=== PATIENT | female | born 2000 | race Caucasian/White ===

== ENCOUNTER 2018-09-18 23:07 | Emergency (ER) | payer SELFPAY ==
[~2018-09-18] VITALS: Ht 167.6 cm; Wt 109.2 kg
[2018-09-18 23:21] VITALS: Ht 167.6 cm; Wt 109.2 kg
[2018-09-19] MEDS ORDERED: SOD CHLORIDE 0.9% 1,000 ML IV STA (02:38)
[2018-09-19] MEDS ORDERED: ONDANSETRON 4 MG INJ IV STA (02:48)
[2018-09-19] MEDS ORDERED: HYDROmorphONE 1 MG/ML SYG IV STA (02:48)
--- NOTE | 2018-09-19 04:07 | ERD ---
ER Documentation Chief Complaint Chief Complaint C/O NAUSEA AND VOMITING X1 DAY, DIARRHEA AND AP X4 DAYS HPI This is a 18-year-old female who is had vomiting x1 today that was nonbilious and nonbloody, she is had 3 days of diarrhea having about 8-10 watery stools a day. She has no abdominal pain. No fever. Does not know if has had food borne illness. No others at home with the same symptoms. She also complains of a dull headache but no fever photophobia or stiff neck ROS All systems reviewed and are negative except as per history of present illness. Medications Home Meds No Active Prescriptions or Reported Meds Allergies Allergies: Coded Allergies: No Known Allergy (Unverified , 09/19/18) FmHx Family History: No coronary disease Physical Exam Vitals Vital Signs Date Temp Pulse Resp B/P (MAP) Pulse Ox O2 O2 Flow FiO2 Time Delivery Rate 09/18/18 98.5 85 19 133/78 97 23:21 (96) Physical Exam Const: Well-developed, well-nourished Head: Atraumatic, normocephalic Eyes: Normal Conjunctiva, PERRLA, EOMI, normal sclera, no nystagmus ENT: Normal External Ears, Nose and Mouth, moist mucus membranes. Neck: Full range of motion. No meningismus, no lymphadenopathy. Resp: Clear to auscultation bilaterally, no wheezing, rhonchi, rales Cardio: Regular rate and rhythm, no murmurs, S1 S2 present Abd: Soft, non tender x 4, non distended. Normal bowel sounds, no guarding or rebound, no pulsitile abdominal masses or bruits Skin: No petechiae or rashes, no ecchymosis , no maculopapular rash Back: No midline or flank tenderness Ext: No cyanosis, or edema, FROM x 4, normal inspection, neurovascularly intact x 4 Neur: Awake and alert, STR 5/5 x 4, sensation intact x 4, no focal findings, cerebellum intact Psych: Normal Mood and Affect Result Diagram: 09/19/18 0309 09/19/18 0309 Results 24 hrs Laboratory Tests Test 09/19/18 02:26 09/19/18 03:09 09/19/18 03:18 POC Beta HCG, Qualitative NEGATIVE White Blood Count 7.4 10^3/ul Red Blood Count 4.86 10^6/ul Hemoglobin 11.9 g/dl Hematocrit 37.8 % Mean Corpuscular Volume 77.8 fl Mean Corpuscular Hemoglobin 24.5 pg Mean Corpuscular 31.5 g/dl Hemoglobin Concent Red Cell Distribution Width 14.6 % Platelet Count 425 10^3/UL Mean Platelet Volume 10.6 fl Immature Granulocytes % 0.300 % Neutrophils % 59.3 % Lymphocytes % 31.7 % Monocytes % 7.7 % Eosinophils % 0.7 % Basophils % 0.3 % Nucleated Red Blood Cells % 0.0 /100WBC Immature Granulocytes # 0.020 10^3/ul Neutrophils # 4.4 10^3/ul Lymphocytes # 2.3 10^3/ul Monocytes # 0.6 10^3/ul Eosinophils # 0.1 10^3/ul Basophils # 0.0 10^3/ul Nucleated Red Blood Cells # 0.0 10^3/ul Sodium Level 142 mmol/L Potassium Level 3.9 mmol/L Chloride Level 104 mmol/L Carbon Dioxide Level 28 mmol/L Anion Gap 10 Blood Urea Nitrogen 19 mg/dl Creatinine 0.59 mg/dl Est Glomerular Filtrat Rate mL/min > 60 mL/min Glucose Level 95 mg/dl Calcium Level 9.4 mg/dl Bedside Urine pH (LAB) 6.0 Bedside Urine Protein (LAB) Negative Bedside Urine Glucose (UA) Negative Bedside Urine Ketones (LAB) Negative Bedside Urine Blood Negative Bedside Urine Nitrite (LAB) Negative Bedside Urine Leukocyte Esterase Negative (L Current Medications Medications Dose Sig/Elise Start Time Status Last (Trade) Ordered Route PRN Stop Time Admin Dose Reason Admin Sodium 1,000 ml @ Q1H STAT 09/19/18 DC 09/19/18 Chloride 1,000 mls/hr IV 02:38 02:57 09/19/18 03:37 1 mg ONCE STAT 09/19/18 DC 09/19/18 Hydromorphone IV 02:48 02:57 HCl 09/19/18 02:49 (Dilaudid) Ondansetron 4 mg ONCE STAT 09/19/18 DC 09/19/18 HCl (Zofran IV 02:48 02:56 Inj) 09/19/18 02:49 Procedures/MDM Labs are unremarkable and show no signs of gross infection, electrolytes are not abnormal. Patient received IV fluids and pain medication and nausea medication. The patient may have a virus or food borne illness. We will treat with symptomatic control and Cipro Departure Diagnosis: Primary Impression: Gastroenteritis Condition: Stable LU NORTON DO September 19, 2018 04:07
[2018-09-19] MEDS ORDERED: DIPH1TAB PO (04:09)
[2018-09-19] MEDS ORDERED: ONDA4TAB14 PO (04:09)
[2018-09-19] MEDS ORDERED: CIPR500T4 PO (04:09)
[2018-09-19 04:48] VITALS: BP 130/79; PULSE 72; RESP 19
== END 2018-09-19 05:27 | disposition home or self-care (01) ==
LOC: E/R 23:07
DX: K52.9 Noninfective gastroenteritis and colitis, unspecified (principal)
CPT/HCPCS: 36415; 80048; 81003; 81025; 85025; 96374; 96375; 99284; J1170; J2405; J7030